=== PATIENT | female | born 1955 | race African-American/Black ===

== ENCOUNTER 2017-06-07 10:27 | Outpatient (CLI) | payer OTHER, SELFPAY ==
--- NOTE | 2017-06-23 12:22 | MMO ---
BILATERAL SCREENING MAMMOGRAMS: History: Screening. Comparison: 2013, 2011 FINDINGS: This study is interpreted with the assistance of computer aided detection. No suspicious mass or architectural distortion or microcalcifications. IMPRESSION: BIRADS category 1 - negative. Continued screening recommended. POS: [facility]
== END 2017-06-07 10:28 | disposition home or self-care (01) ==
LOC: SCSMAMMO 10:27
PROVIDERS: ATTEND Family Medicine
DX: Z12.31 Encounter for screening mammogram for malignant neoplasm of breast (principal)
CPT/HCPCS: 77067; G0202

== ENCOUNTER 2017-07-04 03:37 | Observation (INO) | payer SELFPAY ==
[2017-07-04] MEDS ORDERED: Magnesium 2 GM/NS 0.9% 100 ML 2 GM in Premix Bag 1 BAG IVPB SCH (04:00)
[2017-07-04 04:14] LABS: #Basophils 0.1 thou/uL (0.0-0.2); #Eosinphils 1.3 thou/uL (0.0-0.7); #Lymphocytes 2.9 thou/uL (1.20-3.40); #Monocytes 0.7 thou/uL (0.11-0.59); #Neutrophils 5.8 thou/uL (1.40-6.50); %Basophils 0.8 % (0.0-1.0); %Eosinophils 11.9 % (0.0-10.0); %Lymphocytes 27.3 % (21.0-51.0); %Monocytes 6.2 % (0.0-10.0); %Neutrophils 53.8 % (42.0-75.0); Hemoglobin 13.3 g/dL (12.0-16.0); Mean Corpuscular Hemoglobin 30.3 pg (27.0-31.0); Mean Corpuscular Volume 94.7 fl (81.0-99.0); Mean Platelet Volume 7.8 fL (7.4-10.4); Platelet Count 254 thou/uL (130-400); RBC Distribution Width 13.8 % (11.5-14.5); White Blood Cell (WBC) Count 10.7 thou/uL (4.8-10.8)
[2017-07-04 04:27] LABS: ALT (SGPT) 19 U/L (8-55); AST (SGOT) 17 U/L (5-34); Albumin 4.4 g/dL (3.4-4.8); Alkaline Phosphatase 96 U/L (40-150); Anion Gap 15 mmol/L (10-20); BUN (Urea Nitrogen) 10 mg/dL (9.8-20.1); Bilirubin, Total 0.3 mg/dL (0.2-1.2); CK (CPK) 155 U/L (29-168); Calc. Creatinine Clearance 0 mL/min (70-130); Carbon Dioxide 25 mmol/L (23-31); Chloride 102 mmol/L (98-107); Estimated GFR-MDRD 85; Globulin 3.4 g/dL (2.4-3.5); Glucose 164 mg/dL (80-115); Potassium 3.6 mmol/L (3.5-5.1); Protein, Total 7.8 g/dL (6.0-8.3); Sodium 138 mmol/L (136-145)
[2017-07-04 04:31] LABS: CKMB 1.2 ng/mL (0-6.6); Troponin I Less than 0.010 ng/mL (< 0.028)
[2017-07-04] MEDS ORDERED: Albuterol Sulfate 2.5 mg/3 ml Neb ONE (04:54)
[2017-07-04 06:25] VITALS: BMI 43.3
[2017-07-04] MEDS ORDERED: Eucerin (Mineral Oil/Petrolatum,White) 30 gm Jar TOP PRN (06:54)
[2017-07-04] MEDS ORDERED: Dextrose 50% Abboject 50 ML SYRINGE SLOW IVP PRN (06:54)
[2017-07-04] MEDS ORDERED: Ondansetron HCl/PF 4 MG/2 ML Vial IVP PRN (06:54)
[2017-07-04] MEDS ORDERED: Mag-Al 1200 mg/1200 mg/30 ML UDCUP PO PRN (06:54)
[2017-07-04] MEDS ORDERED: Artificial Tears 18 DROP/0.9 ML EA EYE PRN (06:54)
[2017-07-04] MEDS ORDERED: Sodium Chloride 0.65% Nasal 44 ML BOT EA NARE PRN (06:54)
[2017-07-04] MEDS ORDERED: Zolpidem Tartrate 5 MG TAB PO PRN (06:54)
[2017-07-04] MEDS ORDERED: Dextrose 5% in Water 1,000 ML IV PRN (06:54)
[2017-07-04] MEDS ORDERED: Loratadine 10 MG TAB PO PRN (06:54)
[2017-07-04] MEDS ORDERED: Ondansetron ODT 4 MG TAB PO PRN (06:54)
[2017-07-04] MEDS ORDERED: Acetaminophen 325 MG TAB PO PRN (06:54)
[2017-07-04] MEDS ORDERED: Benzonatate 100 MG CAP PO PRN (06:54)
[2017-07-04] MEDS ORDERED: HumaLOG 300 UNITS/3 ML VIAL SC PRN ×2 (06:54)
[2017-07-04] MEDS ORDERED: Chloraseptic Spray 180 ml Bottle PO PRN (06:54)
[2017-07-04] MEDS ORDERED: Senokot 8.6 MG TAB PO PRN (06:54)
[2017-07-04] MEDS ORDERED: Milk Of Magnesia 30 ML UDCUP PO PRN (06:54)
[2017-07-04] MEDS ORDERED: Loperamide HCl 2 MG CAP PO PRN (06:54)
[2017-07-04] MEDS ORDERED: hydrALAZINE 20 MG/ML VIAL SLOW IVP PRN (06:54)
[2017-07-04] MEDS ORDERED: HYDROcodone/Acetaminophen 5/325 mg Tablet PO PRN (06:54)
[2017-07-04] MEDS ORDERED: cloNIDine 0.1 MG TAB PO PRN (06:54)
[2017-07-04] MEDS ORDERED: Diabetic Tussin 200 MG/10 ML UDCUP PO PRN (06:54)
[2017-07-04] MEDS ORDERED: Albuterol Sulfate 2.5 mg/3 ml Neb NEB PRN (07:44)
[2017-07-04] MEDS: PROVENTIL INHALER 6.7 G (200 INHALATIONS) INH SCH ×3 (08:08→18:46)
[2017-07-04] MEDS: Mometasone/Formoterol 120 PUFF INHALER INH SCH ×2 (08:08→18:47)
[2017-07-04] MEDS: metFORMIN 500 MG TAB PO SCH ×2 (08:20→20:35)
[2017-07-04] MEDS: Famotidine 20 MG TAB PO SCH ×2 (08:20→20:35)
[2017-07-04] MEDS: guaiFENesin ER 600 MG TAB PO SCH ×2 (08:20→20:35)
--- NOTE | 2017-07-04 09:19 | RAD ---
UPRIGHT PORTABLE CHEST 1 VIEW: Date: 07/04/17 HISTORY: 62-year-old female with dyspnea and shortness of breath. FINDINGS: Monitor leads overlie the chest. Vascular markings are slightly prominent bilaterally, but no conflue nt pneumonia, overt edema, or pleural effusion. IMPRESSION: No acute intrathoracic disease. Slightly prominent bronchovascular markings. POS: [facility]
--- NOTE | 2017-07-04 10:19 | HP ---
PRIMARY CARE PHYSICIAN: Ade Cast M.D. REASON FOR ADMISSION: Acute asthma exacerbation. HISTORY OF PRESENT ILLNESS: A 62-year-old female who has underlying history of morbid obesity, hypot hyroidism, diabetes type 2 and asthma who was brought to emergency room yesterday with the complaint of increasing shortness of breath and wheezing. The patient reports that about a week and a half ago she was having flu-like illness. She was having runny nose, sore throat, headache, body aches. She recovered partially and she started going back to work. On last , she was recovering from a flu-like illness. She was never tested for flu. She reports that she is working in [employer] a nd she has office in front of door, which was opening and closing and she was exposed to cold, weaned multiple times on as well as on Wednesday. Again she started having sore throat and she was f eeling congested in her nose. She was trying [id number] medication, but her condition was not improving. She was getting more and more worse. She started wheezing. She was feeling difficulty b reathing. She was not able to lie down flat. She was having panicky from not able to breathe. She was having cough and because of cough she was having chest wall pain and thus she was feeling congest ed in her nose as well as in her chest. She was having low grade fever, but she did not measure temp erature, and that is why she decided to come to the emergency room last night for evaluation. Paramedics gave her Solu-Medrol and DuoNeb therapy and she was improving to saturations normal. She was hypertensive and that is why she was given nitro by paramedics. The patient was not feeling normal and she was continued to wheeze and that is why we decided to keep this patient in the hospital for further evaluation and treatment. She denies any UTI symptoms. She denies any constipation, diarrhea, melena or calf tenderness. She denies any pleuritic chest pain, hemoptysis. She denies any immobilization. She denies any sick exp osure. She denies any recent travel. REVIEW OF SYSTEMS: The following complete review of systems was negative, unless otherwise mentioned in the HPI or below: Constitutional: Weight loss or gain, ability to conduct usual activities. Skin: Rash, itching. Eyes: Double vision, pain. ENT/Mouth: Nose bleeding, neck stiffness, pain, tenderness. Cardiovascular: Palpitations, dyspnea on exertion, orthopnea. Respiratory: Shortness of breath, wheezing, cough, hemoptysis, fever or night sweats. Gastrointestinal: Poor appetite, abdominal pain, heartburn, nausea, vomiting, constipation, or diarr hea. Genitourinary: Urgency, frequency, dysuria, nocturia. Musculoskeletal: Pain, swelling. Neurologic/Psychiatric: Anxiety, depression. Allergy/Immunologic: Skin rash, bleeding tendency. Please see my HPI for pertinent positive and negative. All other review of systems reviewed and nega tive except as mentioned in the HPI. ALLERGIES: No known drug allergies. CURRENT HOME MEDICATIONS: ProAir HFA 2 puffs q.6 hourly p.r.n., Synthroid 88 mcg p.o. daily, metform in 500 mg p.o. b.i.d., and Singulair 10 mg p.o. at bedtime. PAST MEDICAL HISTORY: Mild intermittent asthma, hypothyroidism, diabetes type 2, morbid obesity. PAST SURGICAL HISTORY: Right eye surgery, , and hysterectomy. PAST PSYCHIATRIC HISTORY: Reviewed and negative. SOCIAL HISTORY: Patient is . She is working in [employer] No history of tobacco, alcoho l or illicit drug abuse. FAMILY HISTORY: No strong family history of premature coronary artery disease, stroke or cancer. EMERGENCY ROOM COURSE: Patient was given Levaquin 750 mg, albuterol nebulization, magnesium sulfate 2 grams. PHYSICAL EXAMINATION: VITAL SIGNS: On arrival, blood pressure 143/94, pulse 98, respiratory rate 20, temperature 98.2, sat uration 98% on room air, and weight 117.3 kilograms. GENERAL: Patient is currently mild respiratory distress. HEAD: Normocephalic, atraumatic. EYES: Pupils round, reactive to light. Extraocular muscle intact. ENT: Oropharynx within normal limits. Pharyngeal erythema noted. No exudate. Moist mucous membran es. NECK: Supple, no JVD, no thyromegaly, no carotid bruits, no lymph node. No meningeal signs of irrit ation. LUNGS: Bilateral end expiratory wheezing heard. Patient is not able to finish complete sentences. No use of accessory muscles of respiration, but tachypnea. CARDIAC: S1 and S2 regular, no murmur, no gallop, no rub. ABDOMEN: Obesity present. Bowel sounds present. Nontender and nondistended. No organomegaly, no m ass, no suprapubic tenderness. Patient does have chest wall and abdominal wall soreness from coughin g, but no real tenderness. BACK: Examination unremarkable, no CVA tenderness. EXTREMITIES: Upper extremity; passive movements of all joints are normal. Lower extremity; trace no npitting bilateral edema noted. NEUROLOGIC: The patient is alert and oriented x3. Cranial nerves II-XII intact. Motor and sensatio n within normal limits. No focal neurological deficit noted. SKIN: No skin rash. PSYCHIATRIC: Normal affect. IMAGING DATA AND SIGNIFICANT LABORATORY DATA: 1. EKG based on my review, sinus arrhythmia, nonspecific ST-T changes. 2. Chest x-ray based on my review, no acute cardiopulmonary process. 3. CBC: WBC 10.7, hemoglobin 13.3, platelet 254. 4. BMP: Sodium 138, potassium 3.6, chloride 102, carbon dioxide 25, anion gap 15, BUN 10, creatinin e 0.82, glucose 164, calcium 10.0. 5. LFT: AST 17, ALT 19, alkaline phosphatase 96, albumin 4.4. 6. Cardiac enzymes: CK-MB 1.2, troponin I less than 0.010, BNP less than 10. ASSESSMENT AND PLAN/IMPRESSION: 1. Acute asthmatic bronchitis, most likely current episode is precipitated by her recent upper respi ratory infection. Patient is wheezing and she is still in respiratory distress. She will require ad mission. She is saturating normal. At this point, I will continue DuoNeb therapy every 4 hourly and albuterol nebulization every 2 hours p.r.n. basis. We will also continue Dulera 2 puffs inhalation b.i.d. and Solu-Medrol 40 mg IV q.6 hourly along with symptomatic treatment of cough with Tessalon an d Mucinex, empiric antibiotic therapy, Levaquin 750 mg will be given. We will also continue Singulai r 10 mg p.o. at bedtime. We will monitor her oxygen saturation and clinical response. 2. Upper respiratory infection, rule out influenza. We will check respiratory virus panel by PCR an d symptomatic treatment for upper respiratory infection will be given including Chloraseptic gargle, Claritin and symptomatic treatment for cough. 3. Diabetes type 2. We will continue metformin 500 mg p.o. b.i.d. and insulin as per sliding scale per protocol. Diabetic diet will be given. 4. Hypothyroidism. We will continue Synthroid 88 mcg p.o. daily. 5. Morbid obesity with body mass index of 43, weight loss education given. Healthy lifestyle measur es discussed with the patient. 6. Deep venous thrombosis prophylaxis not needed because we are expecting discharge in 24 hours to 4 8 hours. 7. Gastrointestinal prophylaxis, Pepcid 20 mg p.o. b.i.d. 8. Code status: The patient is FULL CODE. Patient's is surrogate decision maker. Disposition plan based on clinical course. We are expecting patient's stay in hospital 24 hours. If patient is not doing well, then we will consider changing to inpatient status tomorrow if needed.
[2017-07-04] MEDS ORDERED: methylPREDNISolone Sod Succ/PF 125 MG/2 ML VIAL IVP SCH (12:00)
[2017-07-04] MEDS ORDERED: Montelukast Sodium 10 mg Tablet PO SCH (21:00)
[2017-07-05] MEDS: PROVENTIL INHALER 6.7 G (200 INHALATIONS) INH SCH ×2 (02:41→06:13)
[2017-07-05] MEDS ORDERED: Levothyroxine Sodium 88 MCG TAB PO SCH (06:00)
[2017-07-05] MEDS: Mometasone/Formoterol 120 PUFF INHALER INH SCH (06:12)
[2017-07-05 08:12] VITALS: TEMP 98.7
[2017-07-05] MEDS: guaiFENesin ER 600 MG TAB PO SCH (08:54)
[2017-07-05] MEDS: Famotidine 20 MG TAB PO SCH (08:54)
[2017-07-05] MEDS: metFORMIN 500 MG TAB PO SCH (08:54)
[2017-07-05 10:22] VITALS: BP 156/79
[2017-07-05] MEDS ORDERED: Lisinopril 5 MG TAB PO SCH (10:30)
--- NOTE | 2017-07-05 10:45 | PDOC.PN ---
- Subjective Encounter Start Date: 07/05/17 Encounter Start Time: 07:20 -: old records requested/rev Patient seen and examined. No new complaints. No overnight events - Objective Resuscitation Status: Resuscitation Status FULL:Full Resuscitation MAR Reviewed: Yes Vital Signs & Weight: Vital Signs (12 hours) Temp Pulse Resp BP BP Pulse Ox 07/05/17 10:22 156/79 H 07/05/17 08:00 98.7 F 121 H 16 07/05/17 07:20 98.7 F 121 H 16 181/77 H 93 L 07/05/17 06:12 78 16 98 07/05/17 06:10 107 H 18 98 07/05/17 06:00 98 07/05/17 02:41 99 18 94 L 07/05/17 00:12 112 H 142/65 H 18 L Weight Weight 252 lb 11.2 oz Result Diagrams: 07/04/17 03:57 07/04/17 03:57 Additional Labs: Accuchecks 07/05/17 07/04/17 07/04/17 05:53 20:43 17:03 POC Glucose 173 H 181 H 157 H 07/04/17 10:53 POC Glucose 222 H Phys Exam - Physical Examination Constitutional: NAD HEENT: PERRLA, moist MMs, sclera anicteric Neck: no JVD, supple Respiratory: no wheezing, no rales, no rhonchi Cardiovascular: RRR, no significant murmur, no rub Gastrointestinal: soft, non-tender, no distention, positive bowel sounds Musculoskeletal: no edema, pulses present Neurological: non-focal, normal sensation, moves all 4 limbs Psychiatric: normal affect, A&O x 3 Skin: no rash, normal turgor Dx/Plan (1) Acute asthmatic bronchitis Code(s): J45.909 - UNSPECIFIED ASTHMA, UNCOMPLICATED Status: Acute (2) Hypertension Code(s): I10 - ESSENTIAL (PRIMARY) HYPERTENSION Status: Acute (3) URI (upper respiratory infection) Code(s): J06.9 - ACUTE UPPER RESPIRATORY INFECTION, UNSPECIFIED Status: Acute (4) Diabetes type 2, controlled Code(s): E11.9 - TYPE 2 DIABETES MELLITUS WITHOUT COMPLICATIONS Status: Chronic (5) Hypothyroidism Code(s): E03.9 - HYPOTHYROIDISM, UNSPECIFIED Status: Chronic (6) Morbid obesity with BMI of 40.0-44.9, adult Code(s): E66.01 - MORBID (SEVERE) OBESITY DUE TO EXCESS CALORIES; Z68.41 - BODY MASS INDEX (BMI) 40.0-44.9, ADULT Status: Chronic - Plan cont current plan of care, plan discussed w/ family, continue antibiotics, respiratory therapy * medication reviewed as below * symptomatic treatment * see discharge amanda. Review of Systems - Review of Systems ENT: negative: Ear Pain, Ear Discharge, Nose Pain, Nose Discharge, Nose Congestion, Mouth Pain, Mouth Swelling, Throat Pain, Throat Swelling, Other Respiratory: negative: Cough, Dry, Shortness of Breath, Hemoptysis, SOB with Excertion, Pleuritic Pain, Sputum, Wheezing Cardiovascular: negative: chest pain, palpitations, orthopnea, paroxysmal nocturnal dyspnea, edema, light headedness, other Gastrointestinal: negative: Nausea, Vomiting, Abdominal Pain, Diarrhea, Constipation, Melena, Hematochezia, Other Genitourinary: negative: Dysuria, Frequency, Incontinence, Hematuria, Retention , Other Musculoskeletal: negative: Neck Pain, Shoulder Pain, Arm Pain, Back Pain, Hand Pain, Leg Pain, Foot Pain, Other Skin: negative: Rash, Lesions, Eliazar, Bruising, Other - Medications/Allergies Allergies/Adverse Reactions: Allergies Allergy/AdvReac Type Severity Reaction Status Date / Time No Known Drug Allergies Allergy Unverified 07/04/17 03:58 Medications: Current Medications Acetaminophen (Tylenol) 650 mg PO Q4H PRN PRN Reason: Headache/Fever or Pain Last Admin: 07/04/17 08:20 Dose: 650 mg Hydrocodone Bitart/Acetaminophen (Bern 5/325) 1 tab PO Q4H PRN PRN Reason: Moderate Pain (4-6) Al Hydroxide/Mg Hydroxide (Maalox) 30 ml PO Q6H PRN PRN Reason: Heartburn or Indigestion Last Admin: 07/04/17 11:21 Dose: 30 ml Albuterol Sulfate (Proventil Hfa) 2 puff INH [id number] Last Admin: 07/05/17 06:13 Dose: Not Given Albuterol Sulfate (Ventolin) 2.5 mg NEB [id number] PRN PRN Reason: Wheezing Albuterol/Ipratropium (Duoneb) 3 ml NEB [id number] ANKIT Last Admin: 07/05/17 10:29 Dose: Not Given Artificial Tears (Tears Naturale) 0 drop EA EYE PRN PRN PRN Reason: Dry Eyes Benzonatate (Tessalon) 100 mg PO Q4H PRN PRN Reason: Cough Last Admin: 07/05/17 05:54 Dose: 100 mg Clonidine (Catapres) 0.1 mg PO Q4H PRN PRN Reason: Systolic BP > 180 Dextrose/Water (Dextrose 50%) 25 gm SLOW IVP PRN PRN PRN Reason: Hypoglycemia Famotidine (Pepcid) 20 mg PO BID [facility] Last Admin: 07/05/17 08:54 Dose: 20 mg Glucagon (Glucagon) 1 mg IM PRN PRN PRN Reason: Hypoglycemia Guaifenesin (Robitussin Sf) 200 mg PO Q4H PRN PRN Reason: Cough Guaifenesin (Mucinex) 600 mg PO Q12HR [facility] Last Admin: 07/05/17 08:54 Dose: 600 mg Hydralazine HCl (Apresoline) 10 mg SLOW IVP Q4H PRN PRN Reason: Systolic BP > 180 Dextrose/Water (D5w) 1,000 mls @ 0 mls/hr IV .Q0M PRN; As Directed PRN Reason: Hypoglycemia Insulin Human Lispro (Humalog) 0 units SC .MODERATE SLIDING SC PRN PRN Reason: Moderate Correctional Scale Insulin Human Lispro (Humalog) 0 units SC .BEDTIME SLIDING SC PRN PRN Reason: Bedtime Correctional Scale Levofloxacin (Levaquin) 750 mg PO 0600 [facility] Last Admin: 07/05/17 05:53 Dose: 750 mg Levothyroxine Sodium (Synthroid) 88 mcg PO 0600 [facility] Last Admin: 07/05/17 05:54 Dose: 88 mcg Lisinopril (Zestril) 5 mg PO 1030 [facility] Stop: 07/05/17 12:30 Last Admin: 07/05/17 10:21 Dose: Not Given Loperamide HCl (Imodium) 2 mg PO PRN PRN PRN Reason: Diarrhea/Loose Stools Loratadine (Claritin) 10 mg PO DAILYPRN PRN PRN Reason: Sinus Symptoms Magnesium Hydroxide (Milk Of Magnesium) 30 ml PO DAILYPRN PRN PRN Reason: Constipation Metformin HCl (Glucophage) 500 mg PO BID [facility] Last Admin: 07/05/17 08:54 Dose: 500 mg Methylprednisolone Sodium Succinate (Solu-Medrol) 40 mg IVP Q6HR [facility] Last Admin: 07/05/17 05:53 Dose: 40 mg Mineral Oil/White Petrolatum (Eucerin Cream) 0 gm TOP BIDPRN PRN PRN Reason: Dry Skin Mometasone Furoate/Formoterol Fumar (Dulera 200 Mcg/5 Mcg Inhaler) 2 puff INH BID-RT [facility] Last Admin: 07/05/17 06:12 Dose: 2 puff Montelukast Sodium (Singulair) 10 mg PO HS [facility] Last Admin: 07/04/17 20:35 Dose: 10 mg Ondansetron HCl (Zofran Odt) 4 mg PO Q6H PRN PRN Reason: Nausea/Vomiting Ondansetron HCl (Zofran) 4 mg IVP Q6H PRN PRN Reason: Nausea/Vomiting Phenol (Chloraseptic [place] 180 Ml Bot) 0 ml PO PRN PRN PRN Reason: Sore Throat Senna (Senokot) 2 tab PO HSPRN PRN PRN Reason: Constipation Sodium Chloride (Archer Nasal [place] 0.65%) 0 ml EA NARE QIDPRN PRN PRN Reason: Nasal Congestion Zolpidem Tartrate (Ambien) 5 mg PO HSPRN PRN PRN Reason: Insomnia Last Admin: 07/04/17 22:06 Dose: 5 mg
--- NOTE | 2017-07-05 11:54 | DIS ---
DATE OF ADMISSION: 07/04/2017 DATE OF DISCHARGE: 07/05/2017 PRIMARY CARE PHYSICIAN: Dr. Elisabeth Apodaca. DISCHARGE DISPOSITION: Home. PRIMARY DISCHARGE DIAGNOSES: 1. Acute asthmatic bronchitis. 2. Upper respiratory infection and hypertension. SECONDARY DISCHARGE DIAGNOSES: Diabetes type 2, hypothyroidism, morbid obesity with BMI of 43. PRIMARY PROCEDURE/OPERATION: None. RADIOLOGICAL INVESTIGATION: Chest x-ray was normal. SIGNIFICANT LABS: Hemoglobin 13.3. Creatinine 0.82. Electrolytes, LFT, cardiac enzymes and BNP nor mal. DISCHARGE MEDICATIONS: ProAir HFA 2 puffs q.6 hourly p.r.n., Pepcid 20 mg p.o. b.i.d., Mucinex 600 m g p.o. b.i.d. for 7 days, Levaquin 750 mg p.o. daily for 7 days, Synthroid 88 mcg p.o. daily, lisinop ril 5 mg p.o. daily, metformin 500 mg p.o. b.i.d., Dulera 2 puffs inhalation b.i.d., Singulair 10 mg p.o. at bedtime and prednisone 20 mg p.o. b.i.d. for 7 days. CONTRAINDICATIONS: None. CODE STATUS: FULL CODE. INPATIENT CONSULTANTS: None. ALLERGIES: No known drug allergy. DISCHARGE PLAN: Post hospital, the patient will follow up with primary care physician in 1 week. HOSPITAL COURSE: A 62-year-old female with history of asthma. She was suffering from upper respirat ory infection and her upper respiratory infection progressed to asthmatic bronchitis. She was admitt ed by me yesterday. Please see my HPI for further details. After admission, we treated her with Jeana u-Medrol, DuoNeb, Dulera, Mucinex, Singulair, empiric antibiotic with Levaquin. She had dramatic imp rovement within 24 hours. The next day, the patient was completely wheezing free. She slept very we ll last night and she expressed her own wish to go home today. On discharge, we prescribed prednison e p.o. antibiotic and DuoNeb inhaler. Her blood pressure was high and that is why I prescribed her l isinopril, given her diabetes history. Otherwise, the patient is medically stable for discharge. Th e patient is on room air, ambulatory. Plan of care discussed with the family member. The patient is seen and examined at bedside today. Please see my progress note from today for furthe r details.
== END 2017-07-05 10:47 | disposition home or self-care (01) ==
LOC: ERS 03:37 → 2SW 05:54
PROVIDERS: ADMIT Family Medicine; ATTEND Family Medicine
DX: J45.21 Mild intermittent asthma with (acute) exacerbation (principal); J06.9 Acute upper respiratory infection, unspecified; I10 Essential (primary) hypertension; E11.9 Type 2 diabetes mellitus without complications; E03.9 Hypothyroidism, unspecified; E66.01 Morbid (severe) obesity due to excess calories; Z68.41 Body mass index [BMI] 40.0-44.9, adult; Z79.84 Long term (current) use of oral hypoglycemic drugs; Z79.899 Other long term (current) drug therapy; Z90.710 Acquired absence of both cervix and uterus; Z98.890 Other specified postprocedural states
CPT/HCPCS: 36415; 36416; 71045; 80053; 82553; 83880; 84484; 85025; 87633; 87798; 93005; 94640; 96365; 96367; 96375; 96376; G0378; J1956; J2920; J3475; J7611; J7620

== ENCOUNTER 2018-01-05 15:11 | Emergency (ER) | payer MEDICARE, SELFPAY ==
[2018-01-05] MEDS ORDERED: Acetaminophen 325 MG TAB ONE (17:15)
[2018-01-05 17:53] LABS: #Eosinphils 0.5 thou/uL (0.0-0.7); #Lymphocytes 2.4 thou/uL (1.20-3.40); #Monocytes 0.3 thou/uL (0.11-0.59); #Neutrophils 1.7 thou/uL (1.40-6.50); %Basophils 0.8 % (0.0-1.0); %Eosinophils 9.4 % (0.0-10.0); %Lymphocytes 49.9 % (21.0-51.0); %Monocytes 5.6 % (0.0-10.0); %Neutrophils 34.2 % (42.0-75.0); Hemoglobin 12.9 g/dL (12.0-16.0); Mean Corpuscular HGB CONC 33.4 g/dL (32.0-36.0); Mean Corpuscular Hemoglobin 30.5 pg (27.0-31.0); Mean Corpuscular Volume 91.5 fL (78.0-98.0); Mean Platelet Volume 7.7 fL (7.4-10.4); Platelet Count 220 thou/uL (130-400); RBC Distribution Width 13.9 % (11.5-14.5); Red Blood Cell (RBC) Count 4.23 mill/uL (4.20-5.40); White Blood Cell (WBC) Count 4.9 thou/uL (4.8-10.8)
[2018-01-05 18:00] LABS: CKMB 0.9 ng/mL (0-6.6); Troponin I Less than 0.010 ng/mL (< 0.028)
[2018-01-05 18:13] LABS: Anion Gap 13 mmol/L (10-20); BUN (Urea Nitrogen) 9 mg/dL (9.8-20.1); Calc. Creatinine Clearance 0 mL/min (70-130); Calcium 9.3 mg/dL (7.8-10.44); Carbon Dioxide 23 mmol/L (23-31); Chloride 105 mmol/L (98-107); Estimated GFR-MDRD 90; Glucose 83 mg/dL (80-115); Potassium 3.8 mmol/L (3.5-5.1); Sodium 137 mmol/L (136-145)
--- NOTE | 2018-01-05 18:17 | RAD ---
TWO VIEWS OF THE CHEST: 01/05/18 COMPARISON: 07/04/13 HISTORY: Left flank pain. FINDINGS: Two views of the chest show normal sized cardiomediastinal silhouette. There is no evidence of consol idation, mass, or pleural effusion. Degenerative changes are seen in the spine. IMPRESSION: No evidence of acute cardiopulmonary disease. POS: [facility]
== END 2018-01-05 18:38 | disposition home or self-care (01) ==
LOC: ERS 15:11
DX: R05 Cough (principal); E03.9 Hypothyroidism, unspecified; J45.909 Unspecified asthma, uncomplicated; E11.9 Type 2 diabetes mellitus without complications; Z79.84 Long term (current) use of oral hypoglycemic drugs; Z79.899 Other long term (current) drug therapy
CPT/HCPCS: 36415; 71046; 80048; 82553; 84484; 85025; 93005

== ENCOUNTER 2018-02-17 08:59 | Outpatient (CLI) | payer MEDICARE | END 2018-02-17 09:00 | disposition home or self-care (01) | LOC: DTY/OP 08:59 | PROVIDERS: ATTEND Family Medicine | DX: E11.9 Type 2 diabetes mellitus without complications (principal); E66.9 Obesity, unspecified | CPT/HCPCS: 97802 ==

== ENCOUNTER 2018-04-12 06:18 | Day surgery (SDC) | payer MEDICARE ==
[2018-04-11 16:22] VITALS: BMI 44.2
--- NOTE | 2018-04-11 19:23 | HP ---
DATE OF ADMISSION: 04/12/2018 HISTORY OF PRESENT ILLNESS: This is a 63-year-old female who comes for colonoscopy for colon cancer screening. The patient has no specific GI symptoms. Her bowel movements are regula r. There is no history of colon cancer in family. ALLERGIES: None. SOCIAL HISTORY: The patient does not smoke or drink alcohol. MEDICAL ILLNESSES: 1. Obesity. 2. Hypertension. 3. Diabetes. 4. Hyperlipidemia. 5. Hypothyroidism. 6. Asthma. 7. Hysterectomy. 8. Appendectomy. 10. Bilateral arthroscopic knee surgery in the past. PHYSICAL EXAMINATION: VITAL SIGNS: Pulse is 72, blood pressure 130/76, weight 202 pounds. HEENT: Conjunctivae clear. CARDIOVASCULAR: First and second heart sounds normal. LUNGS: Clear to auscultation. ABDOMEN: Soft to palpate. No organomegaly. No tenderness. No masses. EXTREMITIES: Reveal no edema. ADMITTING DIAGNOSIS: A 63-year-old -[place] female comes in for colonoscopy for colon cancer screening.
--- NOTE | 2018-04-12 10:32 | OP ---
DATE OF PROCEDURE: 04/12/2018 SURGEON: Krystian Prieto M.D. OPERATIVE PROCEDURE: Colonoscopy with biopsy. PREOPERATIVE DIAGNOSIS: A 63-year-old female undergoing colonoscopy for colon cance r screening. POSTOPERATIVE DIAGNOSES: 1. Sessile polyp over the ileocecal area, biopsied. 2. Hemorrhoids. PROCEDURE NOTE: The patient was placed on her left lateral position and was given sedation by Anesth esia Department. A rectal exam was done before the scope was advanced into the rectum. No lesion fe lt on the rectal exam. A Pentax video colonoscope was introduced into the rectum and advanced all th e way into the cecum. The prep was very good. The mucosa appeared normal. Over the ileocecal area, the patient found to have a sessile polyp. It is not really clear if this is a true polyp, but more thickened ileocecal area. This was biopsied. Withdrawal of scope in cecum and ascending colon, hep atic flexure, no pathology seen. The transverse colon, splenic flexure, descending colon, sigmoid co peter, no pathology seen. Retroflexion of scope in the rectum showed hemorrhoids. DISCHARGE PLANNING: This is a 63-year-old female who came for a colonoscopy for col on cancer screening. She underwent colonoscopy with biopsy. DISCHARGE RECOMMENDATIONS: 1. The patient was advised to call me if she develops abdominal pain or hematochezia. 2. In the absence of any of the above symptoms she will come back to me in 2 weeks. 3. Awaiting the biopsy report. I will make further recommendation about the next colonoscopy.
[2018-04-12] MEDS ORDERED: PROPOFOL 200 MG/20 ML VIAL ONE (13:08)
[2018-04-12] MEDS ORDERED: Lidocaine 1% PF 5 ML VIAL ONE (13:08)
== END 2018-04-12 10:02 | disposition home or self-care (01) ==
LOC: SDC 06:18
PROVIDERS: ATTEND Internal Medicine Gastroenterology
PROC: 0DBH8ZX Excision of Cecum, Via Natural or Artificial Opening Endoscopic, Diagnostic (ICD-10-PCS; principal; 2018-04-12)
DX: Z12.11 Encounter for screening for malignant neoplasm of colon (principal); K63.5 Polyp of colon; K64.9 Unspecified hemorrhoids; I10 Essential (primary) hypertension; E11.9 Type 2 diabetes mellitus without complications; E78.5 Hyperlipidemia, unspecified; E03.9 Hypothyroidism, unspecified; J45.909 Unspecified asthma, uncomplicated; E66.9 Obesity, unspecified; Z68.41 Body mass index [BMI] 40.0-44.9, adult; Z79.899 Other long term (current) drug therapy; Z79.84 Long term (current) use of oral hypoglycemic drugs
CPT/HCPCS: 88305; J2001; J2704

== ENCOUNTER 2018-10-29 16:11 | Emergency (ER) | payer MEDICARE, OTHER, SELFPAY ==
--- NOTE | 2018-10-29 17:31 | RAD ---
EXAM: Chest PA and lateral: HISTORY: Cough COMPARISON: 01/05/2018 FINDINGS: Heart: Normal cardiac silhouette Aorta: Unremarkable Pulmonary vessels: Normal Costophrenic angles: Costophrenic angles are clear. Lungs: No consolidation or masses. Pneumothorax: No pneumothorax Osseous structures: No osseous abnormalities IMPRESSION: No acute cardiopulmonary process.
[2018-10-29] MEDS ORDERED: Albuterol Sulfate 2.5 mg/0.5 ml Neb ONE (17:42)
== END 2018-10-29 18:02 | disposition home or self-care (01) ==
LOC: ERS 16:11
DX: J20.9 Acute bronchitis, unspecified (principal); E78.5 Hyperlipidemia, unspecified; I10 Essential (primary) hypertension; E03.9 Hypothyroidism, unspecified; E11.9 Type 2 diabetes mellitus without complications; J45.909 Unspecified asthma, uncomplicated; Z79.899 Other long term (current) drug therapy; Z79.84 Long term (current) use of oral hypoglycemic drugs
CPT/HCPCS: 71046; 94640; J7611; J7620

== ENCOUNTER 2018-11-21 12:44 | Emergency (ER) | payer MEDICARE ==
[2018-11-21 13:20] LABS: Bilirubin Negative (Negative); Blood, Urine Negative (Negative); Clarity CLOUDY (Clear); Glucose, Urine (Dipstick) Negative (Negative); Leukocyte Trace (Negative); Nitrite Negative (Negative); Protein, Urine (Dipstick) Trace mg/dL (Neg-Trace); Specific Gravity, Urine 1.021 (1.002-1.036); pH, Urine 7.5 (5.0-9.0)
[2018-11-21 13:22] LABS: Bacteria/HPF 1+ HPF (None Seen); Hyaline Casts/LPF 0-3 HYALINE CAST LPF (0-3 Hyaline); Pathc Cast-AUWi Flag 0.68 (0-2.49); WBC/HPF 0-3 HPF (0-3)
[2018-11-21] MEDS ORDERED: Ketorolac Tromethamine 30 MG/ML VIAL ONE (13:48)
--- NOTE | 2018-11-21 14:31 | CT ---
CT the abdomen and pelvis without IV contrast utilizing a renal calculus protocol 11/21/2018 1:35 PM INDICATION: Right-sided flank pain COMPARISON: None. TECHNIQUE: Multiple CT images were obtained abdomen and pelvis without IV contrast. Axial, coronal re formatted images were constructed from the raw data. FINDINGS: This examination is limited for the evaluation of solid organs and vascular structures due to the lac k of intravenous contrast which is standard for urinary calculus assessment CT. ABDOMEN: Lung bases: Clear Liver: No focal lesion. Gallbladder: Normal appearing. Pancreas: Normal. Adrenal glands: Normal. Spleen: Normal. Kidneys: There is a 1 to 2 mm nonobstructing calculus involving the superior pole left kidney. No hyd ronephrosis or ureteral calculus is identified. Retroperitoneum of the upper abdomen: No lymphadenopathy or free fluid is identified. Pelvis: Small and large bowel: There are scattered diverticula involving the colon without evidence of active diverticulitis. The appendix is not definitely demonstrated; however, there are no secondary signs for appendicitis. Bladder: Decompressed. Rectal and perirectal soft tissues:Normal. Reproductive structures: The uterus is not visualized and presumed to be surgically absent. Small solomon cifications are seen within the canal veins bilaterally. Free fluid in pelvis: No free fluid is evident. Lymphadenopathy pelvis: No lymphadenopathy is evident. Osseous structures: No acute osseous abnormality. No destructive osteolytic or osteoblastic lesion i s identified. There is scattered degenerative and osteoarthritic changes. IMPRESSION: 1. Left nephrolithiasis. No ureteral calculus or hydronephrosis demonstrated. 2. Colonic diverticulosis without evidence of active diverticulitis.
[2018-11-21] MEDS ORDERED: Ondansetron PF 4 MG/2 ML Vial ONE (15:36)
[2018-11-21] MEDS ORDERED: Morphine 4 MG/ML VIAL ONE (15:36)
--- NOTE | 2018-11-21 15:55 | ULT ---
ULTRASOUND ABDOMEN LIMITED: (RIGHT UPPER QUADRANT) DATE: 11/21/2018 HISTORY: Right upper flank pain FINDINGS: Limited visualization of organs due to large body habitus. Gallbladder: 4 mm wall thickness. No gallstones or sludge identified. No pericholecystic fluid. Liver: Normal parenchymal echogenicity. Right kidney: No hydronephrosis. Pancreas: Visualized, with no gross sonographic abnormality identified (although ultrasound is relati vely insensitive for the detection of pancreatic pathology compared to CT and MRI.). Common duct caliber: 1-3 mm. IMPRESSION: 1) Limited visualization due to body habitus. 2) no cholelithiasis, biliary obstruction, or right hydronephrosis identified. 3) mild mural thickening of gallbladder, nonspecific
[2018-11-21 16:27] LABS: #Eosinphils 0.4 thou/uL (0.0-0.7); #Lymphocytes 2.3 thou/uL (1.20-3.40); #Monocytes 0.4 thou/uL (0.11-0.59); #Neutrophils 2.9 thou/uL (1.40-6.50); %Basophils 0.7 % (0.0-1.0); %Eosinophils 6.1 % (0.0-10.0); %Lymphocytes 38.5 % (21.0-51.0); %Neutrophils 47.8 % (42.0-75.0); Hemoglobin 12.6 g/dL (12.0-16.0); Mean Corpuscular HGB CONC 32.8 g/dL (32.0-36.0); Mean Corpuscular Hemoglobin 30.3 pg (27.0-31.0); Mean Corpuscular Volume 92.2 fL (78.0-98.0); Mean Platelet Volume 7.9 fL (7.4-10.4); Platelet Count 230 thou/uL (130-400); RBC Distribution Width 13.8 % (11.5-14.5); Red Blood Cell (RBC) Count 4.17 mill/uL (4.20-5.40); White Blood Cell (WBC) Count 6.1 thou/uL (4.8-10.8)
[2018-11-21 16:50] LABS: ALT (SGPT) 17 U/L (8-55); AST (SGOT) 15 U/L (5-34); Albumin 4.2 g/dL (3.4-4.8); Alkaline Phosphatase 90 U/L (40-150); Anion Gap 11 mmol/L (10-20); BUN (Urea Nitrogen) 15 mg/dL (9.8-20.1); Bilirubin, Total 0.3 mg/dL (0.2-1.2); Calc. Creatinine Clearance 0 mL/min (70-130); Carbon Dioxide 27 mmol/L (23-31); Chloride 104 mmol/L (98-107); Estimated GFR-MDRD 70; Globulin 3.2 g/dL (2.4-3.5); Glucose 99 mg/dL (80-115); Lipase 19 U/L (8-78); Protein, Total 7.4 g/dL (6.0-8.3); Sodium 138 mmol/L (136-145)
== END 2018-11-21 18:44 | disposition home or self-care (01) ==
LOC: ERS 12:44
DX: R10.11 Right upper quadrant pain (principal); E03.9 Hypothyroidism, unspecified; E11.9 Type 2 diabetes mellitus without complications; J45.909 Unspecified asthma, uncomplicated; Z79.84 Long term (current) use of oral hypoglycemic drugs; Z79.51 Long term (current) use of inhaled steroids; Z79.899 Other long term (current) drug therapy
CPT/HCPCS: 36415; 74176; 76705; 80053; 81003; 81015; 83690; 85025; 87086; 96372; 96374; 96375; J1885; J2270; J2405

== ENCOUNTER 2019-01-10 09:05 | Outpatient (CLI) | payer MEDICARE | END 2019-01-10 09:06 | disposition home or self-care (01) | LOC: DTY/OP 09:05 | PROVIDERS: ATTEND Surgery | DX: E66.01 Morbid (severe) obesity due to excess calories (principal) | CPT/HCPCS: 97802 ==

== ENCOUNTER 2019-02-23 10:38 | Outpatient (CLI) | payer MEDICARE ==
--- NOTE | 2019-02-23 11:50 | MMO ---
Bilateral MAMMO Bilat Screen [facility]. CLINICAL HISTORY: Patient is 64 years old and is seen for screening. The patient has the following family history of breast cancer: cousin female. The patient has no personal history of cancer. VIEWS: The views performed were: bilateral craniocaudal with tomosynthesis and bilateral mediolateral oblique with tomosynthesis. FILMS COMPARED: The present examination has been compared to prior imaging studies performed at [facility] on 04/28/2011 and 05/04/2012, at [facility] on 11/19/2006, and at [facility] on 06/18/2004. MAMMOGRAM FINDINGS: There are scattered fibroglandular densities. There are benign appearing calcifications seen in both breasts. There are no suspicious masses, suspicious calcifications, or new areas of architectural distortion. IMPRESSION: THERE IS NO MAMMOGRAPHIC EVIDENCE OF MALIGNANCY. A ROUTINE FOLLOW-UP MAMMOGRAM IN 1 YEAR IS RECOMMENDED. THE RESULTS OF THIS EXAM WERE SENT TO THE PATIENT. ACR BI-RADS Category 2 - Benign finding MAMMOGRAPHY NOTE: 1. A negative mammogram report should not delay a biopsy if a dominant of clinically suspicious mass is present. 2. Approximately 10% to 15% of breast cancers are not detected by mammography. 3. Adenosis and dense breasts may obscure an underlying neoplasm. Reported by: MADHAVI RODRIGUEZ MD Electonically Signed: [id number]
== END 2019-02-23 10:39 | disposition home or self-care (01) ==
LOC: BICMAMMO 10:38
PROVIDERS: ATTEND Family Medicine
DX: Z12.31 Encounter for screening mammogram for malignant neoplasm of breast (principal); Z80.3 Family history of malignant neoplasm of breast
CPT/HCPCS: 77063; 77067

== ENCOUNTER 2019-03-01 16:27 | Outpatient (CLI) | payer MEDICARE ==
--- NOTE | 2019-03-01 16:51 | RAD ---
LEFT KNEE: 03/01/19 Four views. HISTORY: Knee pain. There are moderate degenerative changes. Loss of medial joint space. Spurring from the tibial condyle s and femoral condyles. Spurring from the patella. No evidence of joint effusion. No evidence of frac ture. IMPRESSION: Moderate degenerative changes as described. POS: OFF
== END 2019-03-01 16:28 | disposition home or self-care (01) ==
LOC: BICRAD 16:27
PROVIDERS: ATTEND Family Medicine
DX: M25.562 Pain in left knee (principal); M17.12 Unilateral primary osteoarthritis, left knee

== ENCOUNTER 2020-05-30 11:51 | Emergency (ER) | payer MEDICARE ==
--- NOTE | 2020-05-30 12:30 | RAD ---
Chest one view HISTORY: Cough. Dyspnea. COMPARISON: 11/22/2019. FINDINGS: Cardiac silhouette is magnified by projection. Pulmonary vasculature are unremarkable. Mediastinum is midline. Subtle density at the right lung base is unchanged from the prior study and m ay be related to overlying soft tissue. Favored to not represent an infiltrate given the stability. No evidence of pneumothorax. Degenerative changes of the shoulders. IMPRESSION : Chronic-type findings are stable. No active cardiopulmonary abnormalities are demonstrated.
[2020-05-30] MEDS ORDERED: Ondansetron ODT 4 MG TAB ONE ×2 (13:00→13:05)
[2020-05-30] MEDS ORDERED: Acetaminophen 500 MG TAB ONE (13:00)
[2020-05-30] MEDS ORDERED: Ibuprofen 800 MG TAB ONE (13:32)
[2020-05-30 16:54] LABS: SARS-CoV-2 NAA Rapid Test DETECTED (NotDetected)
== END 2020-05-30 17:00 | disposition home or self-care (01) ==
LOC: ERS 11:51
DX: U07.1 COVID-19 (principal); J06.9 Acute upper respiratory infection, unspecified; E78.5 Hyperlipidemia, unspecified; E78.00 Pure hypercholesterolemia, unspecified; I10 Essential (primary) hypertension; E03.9 Hypothyroidism, unspecified; E11.9 Type 2 diabetes mellitus without complications; Z79.899 Other long term (current) drug therapy; Z79.84 Long term (current) use of oral hypoglycemic drugs
CPT/HCPCS: 0240U; 71045; 87804 ×2; 99284; Q0162

== ENCOUNTER 2020-06-04 15:12 | Emergency (ER) | payer MEDICARE ==
[~2020-06-04 15:12] MED LIST: Iopamidol 370 76% 100 ML VIAL ONE
[2020-06-04 16:05] LABS: #Basophils 0.1 thou/uL (0.0-0.2); #Eosinphils 0.1 thou/uL (0.0-0.7); #Lymphocytes 1.5 thou/uL (1.20-3.40); #Monocytes 0.7 thou/uL (0.11-0.59); #Neutrophils 4.4 thou/uL (1.40-6.50); %Basophils 1.2 % (0.0-1.0); %Eosinophils 0.9 % (0.0-10.0); %Lymphocytes 22.6 % (21.0-51.0); %Monocytes 10.1 % (0.0-10.0); %Neutrophils 65.2 % (42.0-75.0); Hemoglobin 14.1 g/dL (12.0-16.0); Mean Corpuscular HGB CONC 33.2 g/dL (32.0-36.0); Mean Corpuscular Hemoglobin 30.3 pg (27.0-31.0); Mean Corpuscular Volume 91.2 fL (78.0-98.0); Mean Platelet Volume 7.9 fL (7.4-10.4); Platelet Count 264 thou/uL (130-400); RBC Distribution Width 13.8 % (11.5-14.5); Red Blood Cell (RBC) Count 4.67 mill/uL (4.20-5.40); White Blood Cell (WBC) Count 6.4 thou/uL (4.8-10.8)
[2020-06-04] MEDS ORDERED: Cefepime 1 GM VIAL ONE (16:08)
[2020-06-04] MEDS ORDERED: Acetaminophen 500 MG TAB ONE (16:08)
[2020-06-04] MEDS ORDERED: Ibuprofen 200 MG TAB ONE (16:08)
[2020-06-04 16:18] LABS: ALT (SGPT) 18 U/L (8-55); AST (SGOT) 29 U/L (5-34); Albumin 4.1 g/dL (3.4-4.8); Alkaline Phosphatase 79 U/L (40-110); Anion Gap 19 mmol/L (10-20); BUN (Urea Nitrogen) 12 mg/dL (9.8-20.1); Bilirubin, Total 0.4 mg/dL (0.2-1.2); Calc. Creatinine Clearance 0 mL/min (70-130); Calcium 9.2 mg/dL (7.8-10.44); Carbon Dioxide 26 mmol/L (23-31); Chloride 96 mmol/L (98-107); Globulin 4.2 g/dL (2.4-3.5); Glucose 109 mg/dL (80-115); Protein, Total 8.3 g/dL (6.0-8.3); Sodium 137 mmol/L (136-145)
[2020-06-04 16:40] LABS: D-Dimer Test 1.36 *mcg/mL (0.27-0.43); PTT 31.8 sec (22.9-36.1)
--- NOTE | 2020-06-04 16:47 | RAD ---
Chest one view HISTORY: Dyspnea. COMPARISON: 05/30/2020. FINDINGS: Cardiac silhouette is magnified by projection. Pulmonary vasculature are unremarkable. Mediastinum is midline. No confluent airspace consolidation or evidence of pneumothorax. IMPRESSION : No acute abnormalities are demonstrated.
[2020-06-04] MEDS ORDERED: Ketorolac Tromethamine 30 MG/ML VIAL ONE (16:55)
[2020-06-04] MEDS ORDERED: Ondansetron PF 4 MG/2 ML Vial ONE (16:55)
--- NOTE | 2020-06-04 17:23 | CT ---
CTA Angio Chest W WO Con 06/04/2020 5:00 PM Indication: 65-year-old female with hypertension and diabetes and one week of Covid positive diagnos is now with worsening shortness of breath Technique: Multiple CTA images were obtained of the thorax with IV contrast. 3-D rendering: MIP myles nstructed images were created and reviewed. Comparison: No relevant prior studies available. Findings: Pulmonary arteries: No central or segmental pulmonary embolus is evident. Heart and Aorta: There is mild cardiomegaly Mediastinum:There are numerous mildly prominent hilar and mediastinal lymph nodes which may be reacti ve in nature. Lungs:There are peripheral subpleural groundglass airspace opacities consistent with atypical pneumon ia pattern seen with Covid infection. There are areas of scattered subsegmental volume loss within both lungs. Pleural space: Clear. Upper Abdomen: There is diffuse fatty liver. Osseous Structures: There is scattered degenerative and osteoarthritic change present. Soft tissues:No abnormality. Other findings:None. Impression: 1. No central or segmental pulmonary embolus. 2. Bilateral pneumonia in a pattern typically seen with viral infections such as Covid 19. 3. Mildly prominent mediastinal and hilar lymphadenopathy may be reactive in nature. Follow-up CT wit h IV contrast evaluation in approximately 6-8 weeks may be helpful to document stability or resolution. 4. Fatty liver.
[2020-06-04] MEDS ORDERED: Albuterol 200 PUFF (6.7GM INHALER) ONE (18:14)
[2020-06-04 18:22] LABS: Bilirubin Negative (Negative); Blood, Urine Negative (Negative); Clarity Clear (Clear); Glucose, Urine (Dipstick) Normal (Negative); Ketone, Urine 20 mg/dL (Negative); Leukocyte Negative Leu/uL (Negative); Nitrite Negative (Negative); Protein, Urine (Dipstick) 20 mg/dL (Neg-Trace); Specific Gravity, Urine 1.023 (1.002-1.036); Urobilinogen Normal mg/dL (Less than 2); pH, Urine 6.5 (5.0-9.0)
--- NOTE | 2020-06-08 14:42 | EKG ---
Test Reason : Blood Pressure : / mmHG Vent. Rate : 104 BPM Atrial Rate : 104 BPM P-R Int : 144 ms QRS Dur : 078 ms QT Int : 346 ms P-R-T Axes : 057 -05 066 degrees QTc Int : 454 ms Sinus tachycardia Possible Left atrial enlargement Left ventricular hypertrophy Abnormal ECG Confirmed by RAFAEL MALDONADO ([id number]), senior editor FRANKLIN FORTE ([id number]) on 06/08/2020 2:42:03 PM Referred By: Confirmed By:RAFAEL MALDONADO
== END 2020-06-04 21:53 | disposition home or self-care (01) ==
LOC: ERS 15:12
DX: U07.1 COVID-19 (principal); J12.89 Other viral pneumonia; E78.5 Hyperlipidemia, unspecified; E78.00 Pure hypercholesterolemia, unspecified; I10 Essential (primary) hypertension; E03.9 Hypothyroidism, unspecified; J45.909 Unspecified asthma, uncomplicated; E11.9 Type 2 diabetes mellitus without complications; Z79.84 Long term (current) use of oral hypoglycemic drugs; Z79.82 Long term (current) use of aspirin; Z79.899 Other long term (current) drug therapy
CPT/HCPCS: 36415; 71045; 71275; 80053; 81003; 83605; 83735; 85025; 85379; 85610; 85730; 87040; 87086; 93005; 94664; 94760; 96365; 96366; 96375; J0692; J1885; J2405; J3370; J7030; Q9967

== ENCOUNTER 2020-09-13 21:11 | Emergency (ER) | payer MEDICARE, SELFPAY ==
[2020-09-13] MEDS ORDERED: Ondansetron ODT 4 MG TAB ONE (22:59)
== END 2020-09-14 00:05 | disposition home or self-care (01) ==
LOC: ERS 21:11
DX: B34.9 Viral infection, unspecified (principal); T50.B95A Adverse effect of other viral vaccines, initial encounter; E78.5 Hyperlipidemia, unspecified; E78.00 Pure hypercholesterolemia, unspecified; E03.9 Hypothyroidism, unspecified; J45.909 Unspecified asthma, uncomplicated; E11.9 Type 2 diabetes mellitus without complications; I10 Essential (primary) hypertension; Z79.899 Other long term (current) drug therapy
CPT/HCPCS: 71045; Q0162

== ENCOUNTER 2020-10-27 11:34 | Inpatient (IN) | payer MEDICARE, SELFPAY ==
[~2020-10-27 11:34] MED LIST changes: -Iopamidol 370 76% 100 ML VIAL ONE; +Iopamidol 370 76% 50 ML VIAL FS ONE
[2020-10-27] MEDS ORDERED: predniSONE 20 MG TAB ONE (12:20)
[2020-10-27] MEDS ORDERED: Ketorolac Tromethamine 30 MG/ML VIAL ONE (12:20)
[2020-10-27] MEDS ORDERED: Albuterol 200 PUFF (6.7GM INHALER) ONE (12:25)
[2020-10-27 12:36] LABS: #Basophils 0.1 thou/uL (0.0-0.2); #Eosinphils 0.2 thou/uL (0.0-0.7); #Lymphocytes 1.1 thou/uL (1.20-3.40); #Monocytes 0.7 thou/uL (0.11-0.59); #Neutrophils 4.4 thou/uL (1.40-6.50); %Basophils 1.1 % (0.0-1.0); %Eosinophils 3.3 % (0.0-10.0); %Lymphocytes 17.6 % (21.0-51.0); %Monocytes 10.3 % (0.0-10.0); %Neutrophils 67.7 % (42.0-75.0); Hemoglobin 13.2 g/dL (12.0-16.0); Mean Corpuscular HGB CONC 33.2 g/dL (32.0-36.0); Mean Corpuscular Hemoglobin 30.7 pg (27.0-31.0); Mean Corpuscular Volume 92.5 fL (78.0-98.0); Mean Platelet Volume 7.9 fL (7.4-10.4); Platelet Count 250 thou/uL (130-400); RBC Distribution Width 13.5 % (11.5-14.5); Red Blood Cell (RBC) Count 4.31 mill/uL (4.20-5.40); White Blood Cell (WBC) Count 6.5 thou/uL (4.8-10.8)
[2020-10-27 12:51] LABS: ALT (SGPT) 16 U/L (8-55); AST (SGOT) 16 U/L (5-34); Alkaline Phosphatase 102 U/L (40-110); Anion Gap 16 mmol/L (10-20); BUN (Urea Nitrogen) 9 mg/dL (9.8-20.1); Bilirubin, Total 0.3 mg/dL (0.2-1.2); CK (CPK) 70 U/L (29-168); Calc. Creatinine Clearance 0 mL/min (70-130); Calcium 9.3 mg/dL (7.8-10.44); Carbon Dioxide 19 mmol/L (23-31); Chloride 104 mmol/L (98-107); Globulin 3.7 g/dL (2.4-3.5); Glucose 187 mg/dL (80-115); Potassium 4.4 mmol/L (3.5-5.1); Protein, Total 7.7 g/dL (5.8-8.1); Sodium 135 mmol/L (136-145)
[2020-10-27] MEDS ORDERED: cefTRIAXone\\ROCEPHIN 2 GM VIAL ONE (14:25)
[2020-10-27] MEDS ORDERED: Ondansetron PF 4 MG/2 ML Vial IVP PRN (14:37)
[2020-10-27] MEDS ORDERED: Bisacodyl 5 MG TAB PO PRN (14:37)
[2020-10-27] MEDS ORDERED: Dextrose 50% Abboject 50 ML SYRINGE SLOW IVP PRN (14:41)
[2020-10-27] MEDS ORDERED: Dextrose 5% in Water 1,000 ML IV PRN (14:41)
[2020-10-27] MEDS ORDERED: Azithromycin 500 MG VIAL ONE (15:12)
[2020-10-27 15:33] LABS: Lactic Acid 1.6 mmol/L (0.5-2.2)
[2020-10-27 15:39] LABS: SARS-CoV-2 NAA Rapid Test Not Detected (NotDetected)
[2020-10-27] MEDS: Azithromycin 500 MG in Sodium Chloride 0.9% 250 ML 250 ML IVPB SCH (16:21)
[2020-10-27] MEDS: NS 0.9% w/ 20 MEQ KCL 1,000 ML/1,000 ML BAG IV SCH (16:34)
[2020-10-27] MEDS: Benzonatate 100 MG CAP PO SCH ×2 (16:36→21:19)
[2020-10-27 16:50] VITALS: BMI 44.6
[2020-10-27] MEDS: guaiFENesin ER 600 MG TAB PO SCH (21:19)
[2020-10-27] MEDS: Acetaminophen 325 MG TAB PO PRN (21:25)
[2020-10-27] MEDS: HumaLOG 300 UNITS/3 ML VIAL SC PRN (21:27)
[2020-10-28] MEDS: Acetaminophen 325 MG TAB PO PRN (03:59)
[2020-10-28] MEDS: guaiFENesin/Codeine 200 mg/20 mg 10 ml Cup PO PRN (03:59)
[2020-10-28] MEDS: NS 0.9% w/ 20 MEQ KCL 1,000 ML/1,000 ML BAG IV SCH ×2 (04:00→19:47)
[2020-10-28 06:51] LABS: Hemoglobin 12.9 g/dL (12.0-16.0); Mean Corpuscular HGB CONC 32.9 g/dL (32.0-36.0); Mean Corpuscular Hemoglobin 30.5 pg (27.0-31.0); Mean Corpuscular Volume 92.7 fL (78.0-98.0); Mean Platelet Volume 8.1 fL (7.4-10.4); Platelet Count 217 thou/uL (130-400); RBC Distribution Width 13.5 % (11.5-14.5); Red Blood Cell (RBC) Count 4.22 mill/uL (4.20-5.40); White Blood Cell (WBC) Count 5.8 thou/uL (4.8-10.8)
[2020-10-28 07:08] LABS: Anion Gap 13 mmol/L (10-20); BUN (Urea Nitrogen) 9 mg/dL (9.8-20.1); Calc. Creatinine Clearance 125 mL/min (70-130); Calcium 9.2 mg/dL (7.8-10.44); Carbon Dioxide 21 mmol/L (23-31); Chloride 105 mmol/L (98-107); Glucose 159 mg/dL (80-115); Sodium 135 mmol/L (136-145)
[2020-10-28] MEDS: Enoxaparin Sodium 40 MG/0.4 ML SYRINGE SC SCH (08:16)
[2020-10-28] MEDS: guaiFENesin ER 600 MG TAB PO SCH ×2 (08:16→20:01)
[2020-10-28] MEDS: Benzonatate 100 MG CAP PO SCH ×3 (08:16→20:01)
[2020-10-28 10:47] LABS: Band 6 % (5-11); Eosinophils 1 % (0-10); Lymphocytes 28 % (21-51); MDiff Complete? YES; Monocytes 8 % (0-10); Neutrophil 56 % (42-75); RBC Morphology Normal; Reactive Lymphocytes 1 % (0-10)
[2020-10-28] MEDS: HYDROcodone/Acetaminophen 5/325 mg Tablet PO PRN ×2 (13:16→19:50)
[2020-10-28] MEDS ORDERED: cefTRIAXone\\ROCEPHIN 1 GM in Sodium Chloride 0.9% 100 ML IVPB SCH (15:00)
[2020-10-28] MEDS: Azithromycin 500 MG in Sodium Chloride 0.9% 250 ML 250 ML IVPB SCH (17:28)
[2020-10-28] MEDS: HumaLOG 300 UNITS/3 ML VIAL SC PRN ×2 (17:41→20:43)
[2020-10-28] MEDS ORDERED: Mometasone 200 MCG/Formoterol 5 MCG 120 PUFF INHALER INH SCH (19:00)
[2020-10-28] MEDS: Cefepime 2 GM in Sodium Chloride 0.9% 100 ML IVPB SCH (19:47)
[2020-10-29] MEDS: Cepastat Lozenges 1 LOZ PO PRN ×2 (04:23→10:37)
[2020-10-29] MEDS: Cefepime 2 GM in Sodium Chloride 0.9% 100 ML IVPB SCH ×3 (04:23→20:42)
[2020-10-29] MEDS: Levothyroxine Sodium 88 MCG TAB PO SCH (05:38)
[2020-10-29] MEDS: guaiFENesin/Codeine 200 mg/20 mg 10 ml Cup PO PRN (05:38)
[2020-10-29] MEDS: NS 0.9% w/ 20 MEQ KCL 1,000 ML/1,000 ML BAG IV SCH ×2 (05:47→14:00)
[2020-10-29] MEDS: Mometasone 200 MCG/Formoterol 5 MCG 120 PUFF INHALER INH SCH ×2 (07:02→18:53)
[2020-10-29] MEDS: Enoxaparin Sodium 40 MG/0.4 ML SYRINGE SC SCH (10:31)
[2020-10-29] MEDS: guaiFENesin ER 600 MG TAB PO SCH ×2 (10:31→20:42)
[2020-10-29] MEDS: Benzonatate 100 MG CAP PO SCH ×2 (10:31→18:30)
[2020-10-29] MEDS: Saccharomyces boulardii 250 MG CAP PO SCH (10:32)
[2020-10-29 17:14] LABS: Legionella Urinary Ag Negative (Negative); Strep pneumo Urine Ag NEGATIVE (NEGATIVE)
[2020-10-29] MEDS: Azithromycin 500 MG in Sodium Chloride 0.9% 250 ML 250 ML IVPB SCH (18:30)
[2020-10-29] MEDS: HYDROcodone/Acetaminophen 5/325 mg Tablet PO PRN (19:28)
[2020-10-29] MEDS ORDERED: Benzonatate 100 MG CAP PO PRN (19:46)
[2020-10-29] MEDS: Famotidine 20 MG TAB PO SCH (20:41)
[2020-10-29] MEDS: HumaLOG 300 UNITS/3 ML VIAL SC PRN (20:43)
[2020-10-30] MEDS: Cefepime 2 GM in Sodium Chloride 0.9% 100 ML IVPB SCH ×2 (04:28→12:40)
[2020-10-30] MEDS: Cepastat Lozenges 1 LOZ PO PRN ×2 (04:33→21:00)
[2020-10-30] MEDS: Levothyroxine Sodium 88 MCG TAB PO SCH (05:01)
[2020-10-30] MEDS: HumaLOG 300 UNITS/3 ML VIAL SC PRN ×2 (05:35→12:57)
[2020-10-30 06:16] LABS: #Basophils 0.1 thou/uL (0.0-0.2); #Eosinphils 0.6 thou/uL (0.0-0.7); #Lymphocytes 2.7 thou/uL (1.20-3.40); #Monocytes 0.5 thou/uL (0.11-0.59); #Neutrophils 2.3 thou/uL (1.40-6.50); %Eosinophils 9.3 % (0.0-10.0); %Lymphocytes 44.7 % (21.0-51.0); Hemoglobin 11.8 g/dL (12.0-16.0); Mean Corpuscular HGB CONC 32.6 g/dL (32.0-36.0); Mean Corpuscular Hemoglobin 30.1 pg (27.0-31.0); Mean Corpuscular Volume 92.3 fL (78.0-98.0); Mean Platelet Volume 7.7 fL (7.4-10.4); Platelet Count 244 thou/uL (130-400); RBC Distribution Width 13.5 % (11.5-14.5); Red Blood Cell (RBC) Count 3.92 mill/uL (4.20-5.40); White Blood Cell (WBC) Count 6.1 thou/uL (4.8-10.8)
[2020-10-30] MEDS: Mometasone 200 MCG/Formoterol 5 MCG 120 PUFF INHALER INH SCH ×2 (06:18→17:28)
[2020-10-30 06:40] LABS: ALT (SGPT) 12 U/L (8-55); AST (SGOT) 14 U/L (5-34); Albumin 3.6 g/dL (3.4-4.8); Alkaline Phosphatase 85 U/L (40-110); Anion Gap 11 mmol/L (10-20); BUN (Urea Nitrogen) 9 mg/dL (9.8-20.1); Bilirubin, Total 0.2 mg/dL (0.2-1.2); Calc. Creatinine Clearance 125 mL/min (70-130); Calcium 8.8 mg/dL (7.8-10.44); Carbon Dioxide 25 mmol/L (23-31); Chloride 105 mmol/L (98-107); Globulin 3.1 g/dL (2.4-3.5); Glucose 146 mg/dL (80-115); Potassium 3.8 mmol/L (3.5-5.1); Protein, Total 6.7 g/dL (5.8-8.1); Sodium 137 mmol/L (136-145)
[2020-10-30] MEDS: Enoxaparin Sodium 40 MG/0.4 ML SYRINGE SC SCH (08:12)
[2020-10-30] MEDS: Famotidine 20 MG TAB PO SCH ×2 (08:12→20:26)
[2020-10-30] MEDS: Saccharomyces boulardii 250 MG CAP PO SCH (08:12)
[2020-10-30] MEDS: guaiFENesin ER 600 MG TAB PO SCH ×2 (08:12→20:20)
[2020-10-30] MEDS: Azithromycin 500 MG in Sodium Chloride 0.9% 250 ML 250 ML IVPB SCH (16:22)
[2020-10-30] MEDS: HYDROcodone/Acetaminophen 5/325 mg Tablet PO PRN (17:27)
[2020-10-30] MEDS: Senokot S 8.6-50 MG TAB PO PRN (20:26)
[2020-10-31] MEDS: Cepastat Lozenges 1 LOZ PO PRN (03:54)
[2020-10-31] MEDS: Levothyroxine Sodium 88 MCG TAB PO SCH (06:00)
[2020-10-31] MEDS: HumaLOG 300 UNITS/3 ML VIAL SC PRN (06:01)
[2020-10-31] MEDS: Mometasone 200 MCG/Formoterol 5 MCG 120 PUFF INHALER INH SCH (06:11)
[2020-10-31 08:11] VITALS: BP 122/75; TEMP 97.7
[2020-10-31] MEDS: Enoxaparin Sodium 40 MG/0.4 ML SYRINGE SC SCH (08:17)
[2020-10-31] MEDS: Famotidine 20 MG TAB PO SCH (08:17)
[2020-10-31] MEDS: Senokot S 8.6-50 MG TAB PO PRN (08:17)
[2020-10-31] MEDS: Saccharomyces boulardii 250 MG CAP PO SCH (08:17)
[2020-10-31] MEDS: guaiFENesin ER 600 MG TAB PO SCH (08:17)
== END 2020-10-31 11:11 | disposition home or self-care (01) | DRG 871 ==
LOC: ERS 11:34 → T4-B 14:34
PROVIDERS: ADMIT Family Medicine; ATTEND Internal Medicine
DX: A41.9 Sepsis, unspecified organism (principal); J18.9 Pneumonia, unspecified organism; Z68.41 Body mass index [BMI] 40.0-44.9, adult; E87.1 Hypo-osmolality and hyponatremia; E03.9 Hypothyroidism, unspecified; E11.9 Type 2 diabetes mellitus without complications; E66.01 Morbid (severe) obesity due to excess calories; J45.909 Unspecified asthma, uncomplicated; Z20.822 Contact with and (suspected) exposure to COVID-19; Z86.16 Personal history of COVID-19; Z79.84 Long term (current) use of oral hypoglycemic drugs; Z90.89 Acquired absence of other organs; Z90.49 Acquired absence of other specified parts of digestive tract; Z90.710 Acquired absence of both cervix and uterus; Z98.890 Other specified postprocedural states; Z79.899 Other long term (current) drug therapy
CPT/HCPCS: 0240U; 36415; 36416; 71045; 71275; 80048; 80053; 82550; 83605; 84145; 84484; 85007; 85025; 85027; 85379; 85652; 86140; 87040; 87070; 87077; 87149; 87205; 87449; 87899; 90471; 90732; 93005; 94640; 96365; 96367; 96375; G0009; J0456; J0692; J0696; J1650; J1815; J1885; J3480; J3490; J7050; J7512; J7620; Q9967

== ENCOUNTER 2020-12-09 11:12 | Outpatient (CLI) | payer MEDICARE | END 2020-12-09 11:13 | disposition home or self-care (01) | LOC: BICMAMMO 11:12 | PROVIDERS: ATTEND Family Medicine | DX: Z12.31 Encounter for screening mammogram for malignant neoplasm of breast (principal); Z80.3 Family history of malignant neoplasm of breast | CPT/HCPCS: 77063; 77067 ==

== ENCOUNTER 2021-10-30 10:09 | Outpatient (CLI) | payer MEDICARE | END 2021-10-30 10:10 | disposition home or self-care (01) | LOC: BICRAD 10:09 | PROVIDERS: ATTEND Nurse Practitioner Family | DX: M25.511 Pain in right shoulder (principal); M19.011 Primary osteoarthritis, right shoulder ==

== ENCOUNTER 2022-06-01 10:42 | Outpatient (CLI) | payer MEDICARE | END 2022-06-01 10:43 | disposition home or self-care (01) | LOC: BICMAMMO 10:42 | PROVIDERS: ATTEND Family Medicine | DX: Z12.31 Encounter for screening mammogram for malignant neoplasm of breast (principal); Z00.00 Encounter for general adult medical examination without abnormal findings; R92.8 Other abnormal and inconclusive findings on diagnostic imaging of breast; Z78.0 Asymptomatic menopausal state | CPT/HCPCS: 77063; 77067; 77080 ==

== ENCOUNTER 2023-11-30 10:48 | Observation (INO) | payer MEDICARE ==
[2023-11-30 13:28] LABS: #Basophils 0.04 10x3/uL (0.0-0.2); %Basophils 0.7 % (0.0-1.0); %Eosinophils 9.7 % (0.0-10.0); %Lymphocytes 43.3 % (21.0-51.0); %Monocytes 5.4 % (0.0-10.0); %Neutrophils 40.4 % (42.0-75.0); Hematocrit 41.6 % (36.0-47.0); Hemoglobin 13.7 g/dL (12.0-16.0); Mean Corpuscular HGB CONC 32.9 g/dL (32.0-36.0); Mean Corpuscular Hemoglobin 30.2 pg (27.0-31.0); Mean Corpuscular Volume 91.6 fL (78.0-98.0); Mean Platelet Volume 10.8 fL (7.4-10.4); Platelet Count 170 10x3/uL (130-400); RBC Distribution Width 14.6 % (11.5-14.5); Red Blood Cell (RBC) Count 4.54 mill/uL (4.20-5.40)
[2023-11-30 13:38] LABS: ALT (SGPT) 15 U/L (8-55); AST (SGOT) 23 U/L (5-34); Albumin 3.9 g/dL (3.4-4.8); Alkaline Phosphatase 79 U/L (40-110); Anion Gap 17 mmol/L (10-20); BUN (Urea Nitrogen) 16 mg/dL (9.8-20.1); Bilirubin, Total 0.3 mg/dL (0.2-1.2); Calc. Creatinine Clearance 0 mL/min (70-130); Calcium 9.6 mg/dL (7.8-10.44); Carbon Dioxide 23 mmol/L (23-31); Chloride 101 mmol/L (98-107); Estimated GFR 74; Globulin 4.4 g/dL (2.4-3.5); Glucose 101 mg/dL (80-115); Potassium 4.6 mmol/L (3.5-5.1); Protein, Total 8.3 g/dL (5.8-8.1); Sodium 136 mmol/L (136-145)
[2023-11-30 15:23] LABS: Influenza A by NAA Not Detected (NotDetected); Influenza B by NAA Not Detected (NotDetected); SARS-CoV-2 NAA Rapid Test Not Detected (NotDetected)
[2023-11-30] MEDS ORDERED: Aspirin Chewable 81 MG TAB ONE (16:50)
[2023-11-30] MEDS ORDERED: hydrALAZINE 20 MG/ML VIAL SLOW IVP PRN (17:12)
[2023-11-30 21:27] VITALS: BMI 37.7
[2023-11-30] MEDS: Atorvastatin Calcium 40 MG TAB PO SCH (21:33)
[2023-11-30] MEDS: Famotidine 20 MG TAB PO SCH (21:33)
[2023-12-01] MEDS: Acetaminophen 325 MG TAB PO PRN (00:15)
[2023-12-01] MEDS: Melatonin 3 MG TAB PO PRN (00:16)
[2023-12-01 06:01] LABS: Anion Gap 8 mmol/L (10-20); BUN (Urea Nitrogen) 14 mg/dL (9.8-20.1); Calc. Creatinine Clearance 111 mL/min (70-130); Calcium 8.7 mg/dL (7.8-10.44); Carbon Dioxide 28 mmol/L (23-31); Cardiac Risk 3.1 (Less than 4.5); Chloride 105 mmol/L (98-107); Cholesterol 127 mg/dl (< 200 Desired); Estimated GFR 87; Glucose 84 mg/dL (80-115); HDL Cholesterol 41 mg/dL (>60 Neg Risk); LDL Cholesterol, Calculated 75 mg/dL; Sodium 137 mmol/L (136-145); Triglycerides 57 mg/dL (Less than 150)
[2023-12-01] MEDS: Clopidogrel Bisulfate 75 MG TAB PO SCH ×2 (09:04→09:05)
[2023-12-01] MEDS: Enoxaparin 40 MG (0.4 mL) SYRINGE SC SCH (09:05)
[2023-12-01] MEDS: Aspirin 81 mg Enteric Coated Tablet PO SCH (09:05)
[2023-12-01] MEDS: Lorazepam 0.5 MG TAB PO SCH ×2 (10:38→11:33)
[2023-12-01] MEDS ORDERED: Dextrose 5% in Water 1,000 ML IV PRN (11:17)
[2023-12-01] MEDS ORDERED: Dextrose 50% Abboject 50 ML SYRINGE SLOW IVP PRN (11:17)
[2023-12-01] MEDS ORDERED: HumaLOG 300 UNITS/3 ML VIAL SC PRN (11:17)
[2023-12-01] MEDS ORDERED: Glucagon 1 MG/ML KIT IM PRN (11:17)
[2023-12-01 15:47] VITALS: BP 140/88; TEMP 98.4
[2023-12-02] MEDS ORDERED: Clopidogrel Bisulfate 75 MG TAB PO SCH (09:00)
== END 2023-12-01 18:01 | disposition home or self-care (01) ==
LOC: ERS 10:48 → 2SW 16:46
PROVIDERS: ADMIT Internal Medicine; ATTEND Internal Medicine
DX: R29.90 Unspecified symptoms and signs involving the nervous system (principal); I10 Essential (primary) hypertension; E78.5 Hyperlipidemia, unspecified; J32.4 Chronic pansinusitis; J45.909 Unspecified asthma, uncomplicated; E03.9 Hypothyroidism, unspecified; E11.9 Type 2 diabetes mellitus without complications; E66.01 Morbid (severe) obesity due to excess calories; Z68.41 Body mass index [BMI] 40.0-44.9, adult; Z79.890 Hormone replacement therapy; Z79.899 Other long term (current) drug therapy; Z86.73 Personal history of transient ischemic attack (TIA), and cerebral infarction without residual deficits; Z90.89 Acquired absence of other organs; Z90.710 Acquired absence of both cervix and uterus; Z87.59 Personal history of other complications of pregnancy, childbirth and the puerperium; Z79.82 Long term (current) use of aspirin
CPT/HCPCS: 0240U; 70450; 70551; 71046; 80048; 80053; 80061; 82962; 85025; 93005; 99285; J1650; 36415; 36416; 96372; G0378